=== PATIENT | female | born 1975 | race Caucasian/White ===

== ENCOUNTER 2020-04-21 09:06 | Emergency (ER) | payer OTHER, SELFPAY ==
--- NOTE | ~2020-04-21 | CT_ITS ---
EXAMINATION: CT abdomen pelvis w con DATE: 04/21/2020 10:29 INDICATION: Abdominal pain TECHNIQUE: Computed tomography (CT) of the abdomen and pelvis was performed with 100 cc Omnipaque 350 intravenous contrast. The dose-length product was 869.27 mGy-cm. Automated exposure control and iter ative reconstruction technique were employed. COMPARISON: None. FINDINGS: Lung bases are unremarkable. No significant pleural or pericardial effusion. Heart size is normal. There are liver cysts, largest in the left hepatic lobe measuring 2.9 cm. The spleen, pancrea s, adrenal glands and kidneys are unremarkable. Gallbladder is present. Small amount of free fluid in the pelvis. Mild atherosclerosis without aneurysm. No lymphadenopathy. Bladder is decompressed. No acute osseous abnormality. IMPRESSION: 1. No acute abdominal abnormality. Reviewed, dictated and finalized at location A. [facility] [employer]
[2020-04-21 09:12] VITALS: BP 125/83; PULSE 95; RESP 18; TEMP 36.2; O2SAT 97
[2020-04-21 09:47] LABS: Basophils Percent Auto 0.5 % (0.2-1.2); Eosinophils Absolute Auto 0.1 K/mm3 (0-0.3); Eosinophils Percent Auto 1.6 % (0-4.4); Hematocrit 43.6 % (37.0-47.0); Hemoglobin 14.7 g/dL (12.0-15.0); Immature Granulocyte Absolute 0.03 K/mm3 (0.00-0.031); Immature Granulocyte Percent A 0.4 % (0-0.5); Lymphocytes Absolute Auto 2.31 K/mm3 (0.9-3.2); Lymphocytes Percent Auto 28.2 % (18.3-44.2); Mean Corpuscular HGB Conc 33.7 g/dl (32-36); Mean Corpuscular Hemoglobin 30.4 pg (26-34); Mean Corpuscular Volume 90.1 fl (80-100); Mean Platelet Volume 11.2 fl (7.4-10.4); Monocytes Absolute Auto 0.6 K/mm3 (0.1-0.6); Monocytes Percent Auto 7.4 % (2.6-8.5); Neutrophils Absolute Auto 5.1 K/mm3 (1.3-6.7); Neutrophils Percent Auto 61.9 % (45.5-73.1); Platelet Count Result 256 k/mm3 (150-375); Red Blood Count 4.84 M/mm3 (4.2-5.4); Red Cell Distribution Width 13.4 % (11.5-14.5); White Blood Count 8.2 K/mm3 (4.5-10.0)
[2020-04-21 09:51] LABS: Add Urine Microscopic? YES; Appearance Urine Cloudy (Clear); Bacteria Urine Trace /hpf; Bilirubin Urine Negative (Negative); Blood Urine Negative (Negative); Color Urine Yellow (Yellow); Glucose Urine UA Negative (Negative); Ketones Urine Negative (Negative); Leukocyte Esterase Ur Negative LEU/UL (Negative); Mucus Urine Rare /lpf; Nitrate Urine Negative (Negative); Protein Urine Negative (Negative); RBC Urine 0-2 /hpf (0-2); Specific Grav Ur 1.008 (1.001-1.035); Squamous Epithelial Cell Urine Many /hpf (Few); Urobilinogen Urine Negative mg/dL (<2.0); WBC Urine 0-3 /hpf
[2020-04-21 09:56] LABS: Chloride 105 mmol/L (98-107)
[2020-04-21 10:00] LABS: Alanine Aminotransferase 15 U/L (4-35); Albumin Level 4.3 g/dL (3.5-5.1); Alkaline Phosphatase 48 U/L (38-126); Anion Gap 8 mmol/L (8-16); Aspartate Amino Transferase 22 U/L (14-36); Bilirubin,Total 0.5 mg/dL (0.2-1.3); Blood Urea Nitrogen 9 mg/dL (7-17); Calcium 9.5 mg/dL (8.4-10.2); Carbon Dioxide 26 mmol/L (22-30); Estimated CRCL calculation 77 ml/min; Estimated Glomerular Filt Rate > 60; Glucose 103 mg/dL (65-105); Lipase 146 U/L (23-300); Potassium 4.1 mmol/L (3.4-5.0); Sodium 139 mmol/L (137-145)
--- NOTE | 2020-04-21 10:02 | ED.GENADULT ---
HPI - General Adult General Chief complaint: Abdominal Pain Stated complaint: abd pain several days Time Seen by Provider: 04/21/20 09:48 Source: patient History of Present Illness HPI narrative: Patient is a 44 y/o female complaining of upper abdominal pain starting 4 days ago. She describes her pain as sharp and twisting . She rates her pain as 7/10. There is no pain radiation, no alleviating or exacerbating factor. She has nausea, but no vomiting. She has been having diarrhea. Review of Systems Constitutional: Constitutional: Denies chills, Denies fever(s), Denies headache(s) and Denies weakness Eyes: Eyes: Denies blurry vision ENT: Denies headache(s) and Denies neck pain Cardiovascular: Cardiovascular: Denies chest pain and Denies dyspnea Respiratory: Respiratory: Denies cough and Denies dyspnea Gastrointestinal: Gastrointestinal: Reports abdominal pain, Reports diarrhea, Reports nausea and Denies vomiting Genitourinary: Genitourinary: Denies hematuria and Denies dysuria Musculoskeletal: Musculoskeletal: Denies back pain and Denies neck pain Neurologic: Denies headache(s) and Denies weakness Exam Const: General: no acute distress and well developed Orientation/consciousness: oriented to person, oriented to place, oriented to time and patient oriented x3 HENMT: Head: normocephalic Ears: external ears normal General nose exam: Normal external nose present Eyes: General: appearance normal, both eyes and all related structures Conjunctivae: conjunctivae normal Neck: Neck: normal visual inspection and full ROM Chest: Chest palpation & inspection: normal inspection of the chest and no tenderness Resp: Effort & Inspection: normal respiratory effort Auscultation: clear to auscultation bilaterally Cardio: Rate: regular rate Rhythm: regular rhythm GI: GI Palp: No abdominal tenderness and Yes Soft to palpation Skin: General skin exam: normal color and turgor normal Neuro: General: oriented to person, oriented to place, oriented to time and patient oriented x3 Cognition (Neuro): normal cognition Extrem: General: normal to inspection, full ROM and no pedal edema Psych: Appearance: grossly normal Mental Status: mental status grossly normal Affect: normal affect Course Vital Signs Vital signs: Vital Signs Temperature 36.2 C L 04/21/20 09:12 Pulse Rate 95 04/21/20 09:12 Respiratory Rate 18 04/21/20 09:12 Blood Pressure 125/83 04/21/20 09:12 Pulse Oximetry 97 04/21/20 09:12 Temperature 36.2 C L 04/21/20 09:12 Pulse Rate 87 04/21/20 10:56 Respiratory Rate 18 04/21/20 10:56 Blood Pressure 120/78 04/21/20 10:56 Pulse Oximetry 100 04/21/20 10:56 Medical Decision Making Vital Signs Vital Signs: Vital Signs Temperature 36.2 C L 04/21/20 09:12 Pulse Rate 95 04/21/20 09:12 Respiratory Rate 18 04/21/20 09:12 Blood Pressure 125/83 04/21/20 09:12 Pulse Oximetry 97 04/21/20 09:12 Temperature 36.2 C L 04/21/20 09:12 Pulse Rate 87 04/21/20 10:56 Respiratory Rate 18 04/21/20 10:56 Blood Pressure 120/78 04/21/20 10:56 Pulse Oximetry 100 04/21/20 10:56 Lab Data Result diagrams: 04/21/20 09:25 04/21/20 09:25 Labs: Lab Results 04/21/20 04/21/20 04/21/20 Range/Units 09:25 09:25 09:25 WBC 8.2 (4.5-10.0) K/mm3 RBC 4.84 (4.2-5.4) M/mm3 Hgb 14.7 (12.0-15.0) g/dL Hct 43.6 (37.0-47.0) % MCV 90.1 (80-100) fl MCH 30.4 (26-34) pg MCHC 33.7 (32-36) g/dl RDW 13.4 (11.5-14.5) % Plt Count 256 (150-375) k/mm3 MPV 11.2 H (7.4-10.4) fl Immature Gran % (Auto) 0.4 (0-0.5) % Neut % (Auto) 61.9 (45.5-73.1) % Lymph % (Auto) 28.2 (18.3-44.2) % Heard % (Auto) 7.4 (2.6-8.5) % Eos % (Auto) 1.6 (0-4.4) % Baso % (Auto) 0.5 (0.2-1.2) % Lymph # (Auto) 2.31 (0.9-3.2) K/mm3 Heard # (Auto) 0.6 (0.1-0.6) K/mm3 Eos # (Auto) 0.1 (0-0.3) K/mm3
[2020-04-21] MEDS: KETOROLAC 30 MG/ML VIAL (*BKC) IV PUSH (10:17)
[2020-04-21 10:56] VITALS: BP 120/78; PULSE 87; RESP 18; O2SAT 100
== END 2020-04-21 10:57 | disposition home or self-care (01) ==
PROVIDERS: Emergency Provider Emergency Medicine; PCP Family Medicine
DX: K52.9 Noninfective gastroenteritis and colitis, unspecified (principal)
CPT/HCPCS: 36415; 74177; 80053; 81001; 81025; 83690; 85025; 96374; 99284; J1885; Q9967

== ENCOUNTER 2020-07-11 23:30 | Emergency (ER) | payer OTHER, SELFPAY ==
[2020-07-11 23:35] VITALS: BP 127/82; PULSE 128; RESP 22; TEMP 36; O2SAT 99
[2020-07-11 23:58] VITALS: BP 115/78; PULSE 86; RESP 20; O2SAT 99
--- NOTE | 2020-07-12 00:13 | ED.HA ---
HPI - Headache General Chief Complaint: Headache Stated Complaint: migraine Time Seen by Provider: 07/11/20 23:55 Source: patient Mode of arrival: ambulatory Limitations: no limitations History of Present Illness HPI Narrative: This is a 44 year old female that presents to the ER for headache x 1 week. Reports history of migraines for which she does Botox injections. She has a neurologist that she sees is [place]. Reports her headache worsened today. Associated with photophobia, nausea and vomiting. Denies fever, vision changes, numbness, or weakness. Related Data Home Medications Medication Instructions Recorded Confirmed citalopram mg 07/11/20 levothyroxine 07/11/20 spironolactone 07/11/20 Allergies Allergy/AdvReac Type Severity Reaction Status Date / Time cyclobenzaprine Allergy Rash Verified 07/11/20 23:38 [From Flexeril] Review of Systems Review of Systems: Narrative: CONSTITUTIONAL: Denies fever EYES: Denies visual changes GASTROINTESTINAL: Reports nausea, vomiting NEUROLOGIC: Reports headache. Denies numbness, or weakness. All systems reviewed & are unremarkable except as noted in HPI and below PMFSH Past Medical History Medical History (Updated 07/12/20 @ 01:27 by Lashay Bro PA-C) History of migraine Social History Social History (Updated 07/12/20 @ 00:15 by Lashay Bro PA-C) Smoking status: Former smoker Gender identity (if verbalized by the patient): Female Exam Narrative: Exam Narrative: GENERAL: Well-appearing, well-nourished, and in mild acute distress due to pain. HEAD: Normocephalic, atraumatic. EYES: PERRLA and EOMI. ENT: Nares clear, no rhinorrhea or epistaxis. Mucous membranes moist. Oropharynx without tonsillar hypertrophy exudate or other lesions. Bilateral TMs pearly justin non-bulging NECK: Supple. No adenopathy or masses. Normal ROM CHEST: Clear to auscultation. No respiratory distress. No wheezes rales or rhonchi HEART: Regular rate and rhythm. No murmur heard. Normal peripheral pulses. EXTREMITIES: Normal range of motion. No edema. Strength equal in bilateral upper and lower extremities (5/5) SKIN: Warm, dry, no rash. NEURO: No focal deficits. Alert and oriented x3. Cranial nerves II through XII grossly intact PSYCH: Normal mood and affect Course Vital Signs Vital signs: Vital Signs Temperature 96.8 F L 07/11/20 23:35 Pulse Rate 128 H 07/11/20 23:35 Respiratory Rate 22 H 07/11/20 23:35 Blood Pressure 127/82 07/11/20 23:35 Pulse Oximetry 99 07/11/20 23:35 Temperature 96.8 F L 07/11/20 23:35 Pulse Rate 128 H 07/11/20 23:35 Respiratory Rate 22 H 07/11/20 23:35 Blood Pressure 127/82 07/11/20 23:35 Pulse Oximetry 99 07/11/20 23:35 MDM - Headache MDM Narrative Medical decision making narrative: Patient presents emergency department for migraine headache. Has history of migraines and follows with a neurologist for this. She is neurologically intact. Tachycardic upon arrival, normalized with IV fluid administration. Patient given migraine cocktail with relief. She is stable and felt appropriate for further outpatient evaluation. She was instructed to follow-up with her neurologist. She was given warnings to return to the ER Critical Care Time Critical Care Time Critical Care Time: No Discharge Plan Discharge Clinical Impression: Migraine Qualifiers: Migraine type: unspecified Status migrainosus presence: without status migrainosus Intractability: not intractable Qualified Code(s): G43.909 - Migraine, unspecified, not intractable, without status migrainosus Patient Disposition: Home, Self-Care Condition: Stable Instructions: Migraine Headache (ED) Additional Instructions: Return to the emergency department if you experience fever, vision changes, vomiting, sudden onset numbness or weakness, stiff neck, or any other symptoms that are concerning to you Rest. Remain well-hydrated. [id number]
[2020-07-12 00:30] VITALS: BP 112/80; PULSE 87; RESP 20; O2SAT 100
[2020-07-12] MEDS: SODIUM CHLORIDE 0.9% IV 1,000 ML 999 ML IV CONT (00:42)
[2020-07-12] MEDS: KETOROLAC 30 MG/ML VIAL (*BKC) IV PUSH (00:43)
[2020-07-12] MEDS: diphenhydrAMINE HCl INJ 50 MG/ML VIAL 25 MG IV PUSH (00:43)
[2020-07-12] MEDS: METOCLOPRAMIDE HCL INJ 10 MG/2 ML VIAL IV PUSH (00:43)
[2020-07-12 01:30] VITALS: BP 92/63; PULSE 78; RESP 20; O2SAT 100
[2020-07-12 02:22] VITALS: BP 100/66; PULSE 94; RESP 18; O2SAT 94
== END 2020-07-12 02:29 | disposition home or self-care (01) ==
PROVIDERS: Emergency Provider Emergency Medicine; PCP Family Medicine
DX: G43.909 Migraine, unspecified, not intractable, without status migrainosus (principal); Z87.891 Personal history of nicotine dependence
CPT/HCPCS: 96361; 96374; 96375; 99284; J0131; J1100; J1200; J1885; J2765; J7030

== ENCOUNTER → 2022-02-27 12:59 | Outpatient (CLI) | payer BC, SELFPAY ==
--- NOTE | ~2022-02-27 | MMUS_ITS ---
EXAMINATION: MM diagnostic fanny BI w dileep, US breast BI limited HISTORY: Bilateral axillary tenderness. TECHNIQUE: Additional 3-D tomosynthesis images of the breasts were performed and synthetic 2-D images were generated. CAD analysis was submitted and interpreted. High resolution limited bilateral breast ultrasound was performed. COMPARISON: No prior studies for comparison. BREAST PARENCHYMAL COMPOSITION: BREAST PARENCHYMAL COMPOSITION: There are scattered areas of fibroglandular density. FINDINGS: MAMMOGRAPHIC FINDINGS: There are no suspicious masses, calcifications or architectural distortion in either breast to sugges t malignancy. ULTRASOUND: Limited bilateral ultrasound of the axilla and left lateral breast. Heterogeneous echotexture without focal solid or cystic mass. IMPRESSION: 1. No evidence for malignancy in either breast. 2. Routine yearly screening mammogram and regular clinical breast examination are recommended. BI-RADS Category 1: Negative Reviewed, dictated and finalized at location A. [employer] [employer] IMPRESSION: 1. No evidence for malignancy in either breast. 2. Routine yearly screening mammogram and regular clinical breast examination a re recommended. BI-RADS Category 1: Negative
== END ==
PROVIDERS: PCP Family Medicine; Visit Provider Obstetrics & Gynecology Gynecology
DX: R92.8 Other abnormal and inconclusive findings on diagnostic imaging of breast (principal)
CPT/HCPCS: 76642; 77062; 77066; G0279

== ENCOUNTER → 2022-05-06 07:28 | Outpatient (CLI) | payer BC, SELFPAY ==
--- NOTE | ~2022-05-06 | MMUS_ITS ---
EXAMINATION: MM diagnostic fanny LT w dileep, US breast BI limited HISTORY: Additional spot compression views of the left breast and bilateral axillary ultrasound were recommended on 02/27/2022 mammogram and bilateral breast ultrasound examination. Patient complains of bilateral axillary swelling, tenderness TECHNIQUE: Additional 3-D tomosynthesis images of left breast were performed and synthetic 2-D images were generated. CAD analysis was submitted and interpreted. High resolution complete left breast ult rasound examination including all 4 quadrants and subareolar area was performed. Bilateral axillary u ltrasound was performed. COMPARISON: 02/27/2022 bilateral diagnostic mammogram and bilateral Limited breast ultrasound 02/28/2020, 11/04/2016 outside mammogram examinations FINDINGS: MAMMOGRAPHIC FINDINGS: There is an approximately 1.8 x 2.5 cm area of new irregular soft tissue density in the very posterio r upper inner left breast (MLO Tomosynthesis image 53/85; coned compression CC Tomosynthesis image 57 /82). This is not present on previous mammogram examinations of 02/28/2024 11/04/2016. ULTRASOUND: Real-time imaging of the complete left breast reveals no suspicious mass or shadowing. No suspicious mass or shadowing is detected in either axillary area. IMPRESSION: 1. Asymmetric new irregular area of increased mammographic density in the posterior upper inner left breast, without sonographic correlate 2. Preoperative mammographic wire localization and surgical excision of the new asymmetric mammograph ic opacity in the posterior upper inner left breast is recommended BI-RADS category 4, suspicious findings. Dr. Norris telephoned the report and wire localization and surgical excision recommendation of the left breast on 05/06/2022 at 0945 hours to Lorri at Dr. Lee's office. Reviewed, dictated and finalized at location A. [employer] IMPRESSION: 1. Asymmetric new irregular area of increased mammographic density in the poste rior upper inner left breast, without sonographic correlate 2. Preoperative mammographic wire localization and surgical excision of the new asymmetric mammographic opacity in the posterior upper inner left breast is re commended BI-RADS category 4, suspicious findings. Dr. Norris telephoned the report and wire localization and surgical excision reece mmendation of the left breast on 05/06/2022 at [address] Lorri [address] Dr[address] Karissa gottlieb's office.
== END ==
PROVIDERS: PCP Family Medicine; Visit Provider Obstetrics & Gynecology Gynecology
DX: R92.8 Other abnormal and inconclusive findings on diagnostic imaging of breast (principal)
CPT/HCPCS: 99199; 76642

== ENCOUNTER 2024-05-01 09:10 | Outpatient (CLI) | payer BC, SELFPAY ==
--- NOTE | ~2024-05-01 | XR_ITS ---
Left Shoulder Technique: AP and scapular Y views were obtained. Clinical History: Pain Findings: No fracture or dislocation is seen. Osseous alignment is anatomic. The glenohumeral and acr omioclavicular joint spaces are preserved. Soft tissues are unremarkable. Impression: Unremarkable left shoulder radiographs. Reviewed, dictated and finalized at [facility]. T CLOSER Impression: Unremarkable left shoulder radiographs.
== END 2024-05-01 09:11 | disposition home or self-care (01) ==
LOC: MICIMG 09:12
PROVIDERS: PCP Family Medicine; Visit Provider Chiropractor
DX: M25.512 Pain in left shoulder (principal)
CPT/HCPCS: 73030

== ENCOUNTER 2024-11-13 01:05 | Day surgery (SDC) | payer BC, SELFPAY ==
[2024-10-30 10:11] VITALS: BMI 28.1
--- NOTE | 2024-10-30 13:22 | PC.NURSE ---
Pt states to RN that she gets nauseated with taking the prep solution. Dr. Nasir estevez to order Zofran 4mg to take Q6 hrs prn with prep for nausea and vomiting.
--- OUTSIDE RECORDS SUMMARY | 2024-11-13 01:08 | XMS_ITS | Encounter Summary ---
Author Organization [facility] Healthcare Address [address] [place] [id number] Care Team Providers Care Plan Nurse Name Role Phone Unavailable Primary Care Provider Unavailabl e Reason for Visit * Diagnostic Imaging (Routine) - Closed Specialty Diagnoses / Procedures Referred By Aden obrien Referred To Contact Diagnoses Abnormal mammogram of left breast Procedures Breast Imaging Screening Outside Reference Leigh Trent NP Phone: tel: fax: Referral ID Status Reason Start Date Expiration Date Visits Re quested Visits Authorized [id number] Closed 05/13/2022 06/12/2023 1 1 Encounter Details Date Type Department Care Team (Late st Contact Info) Description 11/04/2016 Hospital Encounter [facility] [address] [place] [id number] Social History Tobacco Use Types Packs/Day Years Used Date Smoking Tobacco: Former Cigarettes Comments Unknown Sex and Gender Information Value Date Recorded Sex Assigned at Not on file 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 Gender Identity Not on file Sexual Orientation Not on file documented as of this encounter Plan of Treatment Not on file documented as of this encounter Procedures Procedure Name Priority Date/Time Associated Diagnosis Comments BREAST IMAGING MG SCREENING OUTSIDE REFERENCE Routine 11/04/2016 12:00 AM CDT Abnormal mammogram of left breast documented in this encounter Results * Breast Imaging Screening Outside Reference (11/04/2016 12:00 AM CDT) Impressions RAD_MAMMO_[facility] - 05/13/2022 1:10 PM GEAR FINISHER These images are for Reference purposes only and have not been reviewed by [facility]. There will be no report generated by a [facility]iologist. Narrative [facility]_MAMMO_[facility] - 05/13/2022 1:10 PM GEAR FINISHER EXAMINATION: Images For Reference Purposes Only us Leigh Trent NP IMG MAMMO PROCEDURES Fin al Result [facility] documented in this encounter Visit Diagnoses Not on filedocumented in this encounter
--- OUTSIDE RECORDS SUMMARY | 2024-11-13 01:08 | XMS_ITS | Referral Summary ---
Author Organization [facility] Address [address] [place] [address] Care Team Providers Care Cold Storage Superintendent Name Role Phone Regina Aguero MD Primary Care Provider [phone] Yolande Lee MD Unavailable [phone] Encounters Date Type Department Care Team Description 08/16/2024 2:22 PM CDT - 08/16/2024 11:59 PM CDT Hospital Encounter [facility] [address] [facility] [address] [place] [address] Screening mammogram, encounter for Discharge Disposition: Discharge to home or self care from Last 3 Months Allergies Active Allergy Reactions Criticality Noted Date Comments Cyclobenzaprine Rash Medium 05/06/2012 Rash Medications citalopram (CeleXA) 40 mg tablet Take 40 mg by mouth daily 3 Active estradioL (ESTRACE) 2 mg tablet Take 2 mg by mouth daily 3 Active Synthroid 88 mcg tablet Take 88 mcg by mouth daily 3 Active onabotulinumtox Bing (BOTOX INJ) Botox injection every 3 months for migraines Active Nurtec ODT tablet,disinteg rating 3 Active Active Problems Problem Noted Date Diagnosed Date Abnormal mammogram 05/25/2022 Social History Tobacco Use Types Packs/Day Years Used Date Smoking Tobacco: Former Cigarettes Tobacco Cessation:Counseling Given: Not Answered Comments Unknown Sex and Gender Information Value Date Recorded Sex Assigned at Not on file 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 Gender Identity Not on file Sexual Orientation Not on file Last Filed Vital Signs Vital Sign Reading Time Taken Comments Blood Pressure 120/65 09/07/2012 3:06 PM CDT Pulse 67 09/07/2012 3:06 PM CDT Temperature 36.4 C (97.6 F) 09/07/2012 3:06 PM CDT Respiratory Rate - - Oxygen Saturation 99% 09/07/2012 3:06 PM CDT Inhaled Oxygen Concentration - - Weight 97.5 kg (215 lb) 05/22/2022 1:58 PM HEADING AND PRIMING TOOL SETTER Height 172.7 cm (5' 8) 05/22/2022 1:58 PM HEADING AND PRIMING TOOL SETTER Body Mass Index 32.69 05/22/2022 1:58 PM HEADING AND PRIMING TOOL SETTER Plan of Treatment Not on file Medical Devices Implanted Type Area Timber Selector Device Identifier Shelf Expiration Date Model / Serial / Lot iGoOn s.r.l. Eviva 13cm Identifier Biopsy Site [id number] - [id number] Implanted:Qty: 1 on 08/02/2023 by Mor Carey MD at [facility] Right: Breast iGoOn s.r.l. [id number] 03/31/20[facility] / / [id number] Procedures Procedure Name Priority Date/Time Associated Diagnosis Comments SCREENING MAMMOGRAM BILATERAL W LATANYA Schedule Routine, Read Routine (OP Routine) 08/16/2024 2:36 PM CDT Screening mammogram, encounter for from Last 3 Months Results * Screening Mammogram Bilateral W Latanya (08/16/2024 2:36 PM CDT) Anatomical Region Laterality Modality Breast Bilateral Mammography Narrative 08/17/2024 5:26 PM CDT Mammogram Technique: Bilateral Digital Breast Tomosynthesis, Bilateral C-view 2D Screening mammogram. Views obtained: bilateral craniocaudal and bilateral mediolateral oblique. Computer Aided Detection was performed. Mammogram Findings: The present examination has been compared to prior imaging studies performed at [facility] on 07/15/2023, at [facility] at [facility] on 06/15/2023, and at [facility] on 02/28/2020. There are scattered areas of fibroglandular density. There is no suspicious abnormality in either breast. There are no significant changes from the prior study. Impression: There is no mammographic evidence of malignancy. Annual screening mammography is recommended. OVERALL FINAL ASSESSMENT: BI-RADS CATEGORY 1: Negative. Procedure Note Rosey Zimmer MD - 08/17/2024 Mammogram Technique: Bilateral Digital Breast Tomosynthesis, Bilateral C-view 2D Screening mammogram. Views obtained: bilateral craniocaudal and bilateral mediolateral oblique. Computer Aided Detection was performed. Mammogram Findings: The present examination has been compared to prior imaging studies performed at [facility] on 07/15/2023, at [facility] at [facility] on 06/15/2023, and at [facility] on 02/28/2020. There are scattered areas of fibroglandular density. There is no suspicious abnormality in either breast. There are no significant changes from the prior study. Impression: There is no mammographic evidence of malignancy. Annual screening mammography is recommended. OVERALL FINAL ASSESSMENT: BI-RADS CATEGORY 1: Negative. us Self Screening Mammogram IMG MAMMO PROCEDURES Fi nal Result from Last 3 Months Insurance [facility] Care Teams Cold Storage Superintendent Relationship Specialty Start Date End Date Regina Aguero MD [address] [address] PCP - General 01/25/20 Yolande Lee MD [address] [facility] [address] [place] [address] Referring Physician Gynecology 05/07/22
--- OUTSIDE RECORDS SUMMARY | 2024-11-13 01:08 | XMS_ITS | Clinical Summary ---
Author Organization [facility] Address [facility] [place] [address] Care Team Providers Care Registration Rep Name Role Phone Regina Aguero MD Primary Care Provider [phone] Yolande Lee MD Unavailable [phone] Allergies Active Allergy Reactions Criticality Noted Date [...] Noted Date Diagnosed Date Abnormal mammogram 05/25/2022 Encounters Date Type Department Care Team Description 08/16/2024 2:22 PM CDT - 08/16/2024 11:59 PM CDT Hospital Encounter [address] [address] Screening mammogram, encounter for Discharge Disposition: Discharge to home or self care from Last 3 Months Surgical History Surgery Date Site/Laterality Comments HYSTERECTOMY COLONOSCOPY BREAST BIOPSY 06/10/2022 Left BREAST BIOPSY 08/02/2023 Right Medical History Medical History Date Comments Migraines Depression Overweight Thyroid crisis Family History Medical History Relation Name Comments Leukemia Father's Brother Colon cancer Maternal Grandfather Breast cancer Mother Pancreatic cancer Paternal Grandmother Relation Name Status Comments Father's Brother Maternal Grandfather Mother Paternal Grandmother Social History Tobacco Use Types Packs/Day Years Used Date Smoking Tobacco: Former Cigarettes Tobacco Cessation:Counseling Given: Not Answered Comments Unknown Sex and Gender Information Value Date Recorded Sex Assigned at Not on file Legal Sex Female 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 Gender Identity Not on file Sexual Orientation Not on file Obstetrics History Last Filed Vital Signs Vital Sign Reading Time Taken Comments Blood Pressure 120/65 09/07/2012 3:06 PM CDT Pulse 67 09/07/2012 3:06 PM CDT Temperature 36.4 C (97.6 F) 09/07/2012 3:06 PM CDT Respiratory Rate - - Oxygen Saturation 99% 09/07/2012 3:06 PM CDT Inhaled Oxygen Concentration - - Weight 97.5 kg (215 lb) 05/22/2022 1:58 PM 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 Height 172.7 cm (5' 8) 05/22/2022 1:58 PM 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 Body Mass Index 32.69 05/22/2022 1:58 PM 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 Plan of Treatment Health Maintenance Due Date Last Done Comments Colon Cancer Screening-Colonoscopy 1975 Depression Screening 1975 Hepatitis C Screening 1975 Hepatitis B Screening 1994 Regular Well Visit/Exam 18-64 1994 Covid-19 Vaccine ( season) 2023 04/09/2021, 08/15/2020, 07/27/2020 Influenza Vaccine (#1) 2024 , 01/04/2023, 12/07/2021, Additional history exists Breast Cancer Screening-Mammogram 08/16/2025 08/16/2024, 07/15/2023, 06/16/2023, Additional history exists DTaP/Tdap/Td Vaccine (3 - Td or Tdap) 01/03/2031 01/03/2021, 12/31/2009 Pneumococcal vaccine <65 Aged Out No longer eligible based on patient's age to complete this topic Medical Devices Implanted Type Area Animal Science Professor Device Identifier Shelf Expiration Date Model / Serial / Lot TouchMail [facility] Eviva 13cm Identifier Biopsy Site [id number] - [id number] Implanted:Qty: 1 on 08/02/2023 by Mor Carey MD at [facility] Right: Breast Fashion Movement [facility] [id number] 03/31/2024 IFEANYI VA-13 / / [id number] Procedures Procedure Name Priority Date/Time Associated Diagnosis [...] compared to prior imaging studies performed at [facility] on 07/15/2023, at [facility] on 06/15/2023, and at [facility] on 02/28/2020. There are scattered areas of [...] compared to prior imaging studies performed at [facility] on 07/15/2023, at [facility] on 06/15/2023, and at [facility] on 02/28/2020. There are scattered areas of fibroglandular density. There is no suspicious abnormality in either breast. There are no significant changes from the prior study. Impression: There is no mammographic evidence of malignancy. Annual screening mammography is recommended. OVERALL FINAL ASSESSMENT: BI-RADS CATEGORY 1: Negative. us Self Screening Mammogram IMG MAMMO PROCEDURES Fi nal Result from Last 3 Months Insurance [employer] Care Teams Registration Rep Relationship Specialty Start Date End Date Regina Aguero MD [address] [place] [address] PCP - General 01/25/20 Yolande Lee MD [address] [place] [address] Referring Physician Gynecology 05/07/22
[2024-11-13 06:31] VITALS: BP 100/74; PULSE 67; RESP 19; TEMP 36.3; O2SAT 98
--- NOTE | 2024-11-13 06:33 | SUR.PREOP ---
Spoke with patient in regards to DNR. Patient wishes to remain a full code for colonoscopy. Resuscitation form signed at bedside with patient.
[2024-11-13] MEDS: LACTATED RINGERS 1,000 ML 150 ML IV CONT (06:47)
--- NOTE | 2024-11-13 06:51 | P.PNAN_ITS ---
Anes - Initial Pre Proc Eval Procedure: Operation Date: 11/13/24 07:30 Proposed Procedures p Screening Colonoscopy - Ken Doran MD Date/Time: 11/13/24 06:51 Surgeon: Ken Doran MD Pre Op Diagnosis: Screening Colon Patient Data Age: 49 Gender: F Height: 1.73 m Weight: 76.1 kg Last Vital Signs Temp 36.3 C L 11/13/24 06:31 Pulse 67 11/13/24 06:31 Resp 19 11/13/24 06:31 BP 100/74 11/13/24 06:31 Pulse Ox 98 11/13/24 06:31 O2 Del Method Room Air 11/13/24 06:31 Allergies Allergy/AdvReac Type Severity Reaction Status Date / Time cyclobenzaprine (From AdvReac Rash Verified 11/13/24 06:28 Flexeril) Home Medications ?Medication ?Instructions ?Recorded ?Confirmed ?Type citalopram 40 mg tablet 40 mg PO DAILY 07/11/20 11/13/24 History atogepant 60 mg tablet (Qulipta) 60 mg PO DAILY 10/30/24 11/13/24 History calcium phosphate,dibasic 77 1 tablet PO DAILY 10/30/24 11/13/24 History mg-vitamin D3 400 unit tablet levothyroxine 88 mcg tablet 88 mcg PO DAILY 10/30/24 11/13/24 History (Synthroid) rimegepant 75 mg disintegrating 75 mg PO BID PRN migraine headache 10/30/24 11/13/24 History tablet (Nurtec ODT) Patient hx anesthesia problems: none Family hx anesthesia problems: none Results Review: All pre-operative results and documents have been reviewed as part of the pre- operative evaluation. [facility] Past Medical History Medical History (Updated 07/13/20 @ 00:00 by Juan Schmidt) History of migraine Social History Social History (Updated 07/12/20 @ 00:15 by Lashay Bro PA-C) Smoking packs per day: 1 Smoking cigarettes per day: 20.0 Years smoked: 20 Smoking pack-years: 20.00 Smoking status: Former smoker Tobacco type: cigarettes Alcohol intake: current Drinks per week: 1 Alcohol use details: Bharat Substance use: never Substance use type: marijuana Other substance usage details: Vape/smoke/flower Last use: DAILY Living arrangements: with family Gender identity (if verbalized by the patient): Female Spiritual care concerns: No Anes - Eval Final PreProcedure Day of Procedure 11/13/24 06:51 Patient weight: overweight Heart: regular rate and rhythm Lungs: clear to auscultation Airway: Mallampati scale class II Neurological: alert and oriented Last oral intake: >/= 8 hours ASA classification: III Emergent: no Anesthetic plan: proceed Anesthesia type and monitoring: general GIVS and standard monitoring Results Review: All pre-operative results and documents have been reviewed as part of the pre- operative evaluation. Informed Consent: The patient's anesthetic plan and its attendant risks and benefits were discussed with the patient/family/POA. Questions were solicited and answers provided to the satisfaction of the patient/family/POA.
--- NOTE | 2024-11-13 07:33 | P.HP_ITS ---
History of Present Illness History of Present Illness Consent: Risks, benefits, and alternatives have been discussed and questions answered. Patient agrees to proceed with procedure. Chief complaint: Screening Colon Narrative: Edy Pitts is a 49 year old female with screening colonoscopy Review of Systems Review of Systems: All systems reviewed & are unremarkable except as noted in HPI and below [facility] Past Medical History Medical History (Updated 11/13/24 @ 07:33 by Ken Doran MD) Colon cancer screening History of migraine Social History Social History (Updated 07/12/20 @ 00:15 by Lashay Bro PA-C) Smoking packs per day: 1 Smoking cigarettes per day: 20.0 Years smoked: 20 Smoking pack-years: 20.00 Smoking status: Former smoker Tobacco type: cigarettes Alcohol intake: current Drinks per week: 1 Alcohol use details: [place] Substance use: never Substance use type: marijuana Other substance usage details: Vape/smoke/flower Last use: DAILY Living arrangements: with family Gender identity (if verbalized by the patient): Female Spiritual care concerns: No Meds Home Medications and Allergies Home Medications ?Medication ?Instructions ?Recorded ?Confirmed ?Type citalopram 40 mg tablet 40 mg PO DAILY 07/11/20 11/13/24 History atogepant 60 mg tablet (Qulipta) 60 mg PO DAILY 10/30/24 11/13/24 History calcium phosphate,dibasic 77 1 tablet PO DAILY 10/30/24 11/13/24 History mg-vitamin D3 400 unit tablet levothyroxine 88 mcg tablet 88 mcg PO DAILY 10/30/24 11/13/24 History (Synthroid) rimegepant 75 mg disintegrating 75 mg PO BID PRN migraine headache 10/30/24 11/13/24 History tablet (Nurtec ODT) Allergies Allergy/AdvReac Type Severity Reaction Status Date / Time cyclobenzaprine (From AdvReac Rash Verified 11/13/24 06:28 Flexeril) Vital Signs Vital Signs - 24 hr 11/13/24 06:31 Temperature 97.4 F L Pulse Rate 67 Respiratory Rate 19 Blood Pressure 100/74 Pulse Oximetry 98 Oxygen Delivery Room Air Exam Const: General: comfortable and no acute distress HENMT: Face/Nose/Sinus: Normal nares present Eyes: General: appearance normal, both eyes and all related structures Neck: Neck: no JVD Resp: Auscultation: clear to auscultation bilaterally Cardio: Rate: regular rate Rhythm: regular rhythm GI: Inspection: non-distended GI Palp: Yes Soft to palpation Skin: General skin exam: normal color Neuro: Speech: normal speech Extrem: General: normal to inspection Psych: Mental Status: mental status grossly normal Assessment and Plan Assessment and plan (1) Colon cancer screening: Code(s): Z12.11 - Encounter for screening for malignant neoplasm of colon Status: Acute Assessment and Plan: colonoscopy
--- NOTE | 2024-11-13 07:45 | S_PTH ---
PATIENT: Edy Pitts LOC: [facility]#:[id number] AGE/SX: 49/F ROOM: RE11/13/[address]: Ken Doran MD : 1975 BED: DIS: 11/13/2024 SPEC #: [id number] RECD: 11/13/24 10:36 STATUS: CORIE RENic #: [id number] AVTAR: 11/13/24 07:[address]: Ken Doran DEPT: [facility] Surgical RECD BY: Vikki Dos Santos ENTERED: 11/13/24 10:36 SP TYPE: Surgical OTHR DR: Regina Aguero, Tissues: A - Colon Polypectomy Procedures: Hematoxylin and Eosin Stain Gross and Microscopic Level 4
[2024-11-13 07:46] VITALS: BP 92/62; PULSE 71; RESP 19; O2SAT 98
[2024-11-13 07:56] VITALS: BP 94/66; PULSE 78; RESP 23; O2SAT 100
[2024-11-13 08:06] VITALS: BP 104/68; PULSE 80; RESP 25; O2SAT 100
== END 2024-11-13 08:16 | disposition home or self-care (01) ==
PROVIDERS: PCP Family Medicine; Referring Provider Advanced Practice Midwife; Visit Provider Internal Medicine Gastroenterology
PROC: 0DJD8ZZ Inspection of Lower Intestinal Tract, Via Natural or Artificial Opening Endoscopic (ICD-10-PCS; CPT 45378; principal; 2024-11-13 07:30)
DX: Z12.11 Encounter for screening for malignant neoplasm of colon (principal); D12.5 Benign neoplasm of sigmoid colon; F12.90 Cannabis use, unspecified, uncomplicated; Z87.891 Personal history of nicotine dependence
CPT/HCPCS: 45385; 88305; J2003; J2704; J7120